=== PATIENT | female | born 1965 | race Hispanic/Latino ===

== ENCOUNTER 2020-05-26 19:00 | Inpatient (IN) | payer OTHER, SELFPAY ==
[~2020-05-26] VITALS: Ht 157.5 cm; Wt 85.3 kg
[2020-05-26] MEDS ORDERED: 0.9%NACL 1000ML 1,000 ML IV ONE ×2 (19:12→22:53)
[2020-05-26 19:27] LABS: BASOPHILS % (AUTO) 0.2 % (0.0-5.0); EOSINOPHILS % (AUTO) 0.1 % (0.0-8.0); LYMPHOCYTES % (AUTO) 13.4 % (21.0-51.0); MEAN CORPUSCULAR HEMOGLOBIN 26.8 pg (27.0-33.0); MEAN CORPUSCULAR HGB CONC 32.3 g/dL (32.0-36.0); MEAN CORPUSCULAR VOLUME 82.9 fL (79-99); MONOCYTES % (AUTO) 4.2 % (3.0-13.0); NEUTROPHILS % (AUTO) 81.8 % (40.0-77.0); PLATELET COUNT (AUTO) 228 K/uL (130-400); RED BLOOD CELL COUNT(AUTO) 5.19 MIL/uL (4.00-5.50); RED CELL DISTRIBUTION WIDTH 13.8 % (11.0-15.5); WHITE BLOOD COUNT (AUTO) 11.2 K/uL (4.8-10.8)
[2020-05-26 19:30] LABS: APPEARANCE,URINE Clear (CLEAR); BILIRUBIN,URINE Negative (NEGATIVE); COLOR,URINE Yellow (YELLOW); GLUCOSE, URINE (UA) Negative (NEGATIVE); KETONES,URINE 15 mg/dL (NEGATIVE); LEUKOCYTE ESTERASE ,URINE Trace (NEGATIVE); NITRATE,URINE Negative (NEGATIVE); OCCULT BLOOD,URINE Trace (NEGATIVE); PH,URINE 6.5 (5.0-8.0); PROTEIN,URINE POS 1+ mg/dL (NEGATIVE)
[2020-05-26 19:33] LABS: HCG,QUAL RESULT NEGATIVE (NEGATIVE)
[2020-05-26 19:36] LABS: CREATININE 0.8 mg/dL (0.5-1.5); POTASSIUM 3.7 mmol/L (3.5-5.1)
[2020-05-26 19:37] LABS: RBC,URINE 0-1 /HPF (0-1)
[2020-05-26 19:38] LABS: BACTERIA,URINE Few /HPF (None Seen); MUCUS,URINE Moderate LPF (None Seen); SQUAMOUS EPITHELIAL CELL,UR Few /HPF (0-2)
[2020-05-26 19:47] LABS: ALBUMIN 4.1 g/dL (3.5-5.0); BILIRUBIN,TOTAL 0.6 mg/dL (0.2-1.0); TOTAL PROTEIN, SERUM 8.5 g/dL (6.0-8.3)
[2020-05-26] MEDS ORDERED: ZOSYN 3.375GM+NS 50ML 50 ML IV ONE (19:58)
[2020-05-26] MEDS ORDERED: MORPHINE 4 MG SYG IV PRN (21:15)
[2020-05-26] MEDS ORDERED: ACETAMINOPHEN 325 MG TAB PO PRN ×2 (21:15)
[2020-05-26] MEDS ORDERED: ONDANSETRON 4MG INJ IV PRN (21:15)
[2020-05-26] MEDS: 0.9%NACL 1000ML 1,000 ML IV SCH (21:15)
[2020-05-26] MEDS ORDERED: MORPHINE 4 MG SYG ONE (23:45)
[2020-05-27] VITALS (19 sets, daily range): BP systolic 122–159; BP diastolic 47–88
[2020-05-27] MEDS: ZOSYN 3.375GM+NS 50ML 50 ML IV SCH ×4 (04:42→21:00)
[2020-05-27] MEDS: MORPHINE 2 MG SYG IV PRN ×2 (04:52→22:33)
[2020-05-27] MEDS: 0.9%NACL 1000ML 1,000 ML IV SCH ×2 (06:18→16:30)
[2020-05-27] MEDS ORDERED: DOCUSATE SODIUM 100 MG CAP PO SCH (08:30)
[2020-05-27] MEDS ORDERED: LACTULOSE 20 GM/30 ML UDCUP PO SCH (08:30)
[2020-05-27 08:55] LABS: HEMOGLOBIN A1C 5.9 % (4.0-6.0)
[2020-05-27] MEDS: DOCUSATE SODIUM 100 MG CAP PO SCH ×2 (10:12→22:35)
[2020-05-27] MEDS: SENNOSIDES 8.6 MG TABLET PO SCH (10:12)
[2020-05-27] MEDS: FAMOTIDINE 20MG VIAL IV SCH ×2 (10:12→22:32)
[2020-05-27] MEDS ORDERED: BUPIVACAINE/PF 0.25% 30ML VIAL IJ ONE (16:40)
[2020-05-27] MEDS ORDERED: LIDOCAINE 1%-EPI 1:100,000 20 ML VIAL IJ ONE (16:40)
[2020-05-27] MEDS ORDERED: PROPOFOL 10 MG/ML 20ML VIAL IV ONE (19:05)
[2020-05-27] MEDS ORDERED: FENTANYL CITRATE PF 50 MCG/1 ML 2ML VIAL ONE ×2 (19:05→20:37)
[2020-05-27] MEDS ORDERED: LIDOCAINE PF 100MG/5ML (2%) SYRINGE 5ML ONE (19:05)
[2020-05-27] MEDS ORDERED: SUCCINYLCHOLINE 200MG/10ML SYR ONE (19:05)
[2020-05-27] MEDS ORDERED: MIDAZOLAM HCL 1 MG/ML 2ML VIAL ONE (19:05)
[2020-05-27] MEDS ORDERED: ONDANSETRON 4MG INJ ONE (19:08)
[2020-05-27] MEDS ORDERED: DEXAMETHASONE SOD PHOSPHATE 4 MG/ML 1ML VIAL ONE (19:08)
[2020-05-27] MEDS ORDERED: GLYCOPYRROLATE 1 MG/5 ML SYRINGE ONE (19:08)
[2020-05-27] MEDS ORDERED: NEOSTIGMINE 5MG/5ML SYR IV ONE (19:08)
[2020-05-27] MEDS ORDERED: ROCURONIUM 10MG/1ML SYR 10 MG/ML ML ONE (19:25)
[2020-05-27] MEDS ORDERED: PHENYLEPHRINE HCL 10 MG/ML 1ML VIAL IV ONE (19:54)
[2020-05-28] VITALS (8 sets, daily range): BP systolic 112–159; BP diastolic 60–83
[2020-05-28] MEDS: OXYCODONE/ACETAMIN 5/325MG TAB PO PRN ×2 (02:21→11:47)
[2020-05-28] MEDS: 0.9%NACL 1000ML 1,000 ML IV SCH ×3 (03:30→22:00)
[2020-05-28] MEDS: ZOSYN 3.375GM+NS 50ML 50 ML IV SCH ×3 (04:33→22:00)
[2020-05-28 05:13] LABS: BASOPHILS % (AUTO) 0.2 % (0.0-5.0); EOSINOPHILS % (AUTO) 1.6 % (0.0-8.0); HEMATOCRIT 38.8 % (36-48); LYMPHOCYTES % (AUTO) 9.2 % (21.0-51.0); MEAN CORPUSCULAR HEMOGLOBIN 26.2 pg (27.0-33.0); MEAN CORPUSCULAR HGB CONC 31.2 g/dL (32.0-36.0); MONOCYTES % (AUTO) 5.1 % (3.0-13.0); NEUTROPHILS % (AUTO) 83.6 % (40.0-77.0); PLATELET COUNT (AUTO) 209 K/uL (130-400); RED BLOOD CELL COUNT(AUTO) 4.62 MIL/uL (4.00-5.50); RED CELL DISTRIBUTION WIDTH 14.2 % (11.0-15.5); WHITE BLOOD COUNT (AUTO) 9.5 K/uL (4.8-10.8)
[2020-05-28 05:40] LABS: BILIRUBIN,TOTAL 0.6 mg/dL (0.2-1.0); CREATININE 0.6 mg/dL (0.5-1.5); POTASSIUM 4.1 mmol/L (3.5-5.1); TOTAL PROTEIN, SERUM 7.3 g/dL (6.0-8.3)
[2020-05-28] MEDS: DOCUSATE SODIUM 100 MG CAP PO SCH ×2 (08:20→22:00)
[2020-05-28] MEDS: FAMOTIDINE 20MG VIAL IV SCH ×2 (08:20→22:53)
[2020-05-28] MEDS: SENNOSIDES 8.6 MG TABLET PO SCH (08:20)
[2020-05-29] VITALS (7 sets, daily range): BP systolic 107–144; BP diastolic 58–82
[2020-05-29] MEDS: ZOSYN 3.375GM+NS 50ML 50 ML IV SCH ×3 (05:15→22:03)
[2020-05-29 06:24] LABS: BASOPHILS % (AUTO) 0.7 % (0.0-5.0); EOSINOPHILS % (AUTO) 1.2 % (0.0-8.0); LYMPHOCYTES % (AUTO) 35.9 % (21.0-51.0); MEAN CORPUSCULAR HGB CONC 32.2 g/dL (32.0-36.0); MEAN CORPUSCULAR VOLUME 83.8 fL (79-99); MONOCYTES % (AUTO) 4.7 % (3.0-13.0); NEUTROPHILS % (AUTO) 57.3 % (40.0-77.0); PLATELET COUNT (AUTO) 155 K/uL (130-400); RED BLOOD CELL COUNT(AUTO) 3.82 MIL/uL (4.00-5.50); RED CELL DISTRIBUTION WIDTH 14.2 % (11.0-15.5); WHITE BLOOD COUNT (AUTO) 5.9 K/uL (4.8-10.8)
[2020-05-29 06:46] LABS: ALBUMIN 2.4 g/dL (3.5-5.0); BILIRUBIN,TOTAL 0.4 mg/dL (0.2-1.0); CREATININE 0.8 mg/dL (0.5-1.5); POTASSIUM 3.3 mmol/L (3.5-5.1); TOTAL PROTEIN, SERUM 5.8 g/dL (6.0-8.3)
[2020-05-29] MEDS: SENNOSIDES 8.6 MG TABLET PO SCH (09:16)
[2020-05-29] MEDS: DOCUSATE SODIUM 100 MG CAP PO SCH ×2 (09:16→22:03)
[2020-05-29] MEDS: FAMOTIDINE 20MG VIAL IV SCH ×2 (09:19→22:03)
[2020-05-29] MEDS: 0.9%NACL 1000ML 1,000 ML IV SCH (12:20)
[2020-05-30 03:45] VITALS: BP 134/68
[2020-05-30] MEDS: ZOSYN 3.375GM+NS 50ML 50 ML IV SCH ×3 (05:22→21:59)
[2020-05-30 05:51] LABS: BASOPHILS % (AUTO) 0.4 % (0.0-5.0); EOSINOPHILS % (AUTO) 3.3 % (0.0-8.0); HEMATOCRIT 33.5 % (36-48); LYMPHOCYTES % (AUTO) 37.5 % (21.0-51.0); MEAN CORPUSCULAR HEMOGLOBIN 25.9 pg (27.0-33.0); MEAN CORPUSCULAR VOLUME 83.3 fL (79-99); MONOCYTES % (AUTO) 4.2 % (3.0-13.0); NEUTROPHILS % (AUTO) 54.4 % (40.0-77.0); PLATELET COUNT (AUTO) 192 K/uL (130-400); RED BLOOD CELL COUNT(AUTO) 4.02 MIL/uL (4.00-5.50); RED CELL DISTRIBUTION WIDTH 13.7 % (11.0-15.5); WHITE BLOOD COUNT (AUTO) 5.5 K/uL (4.8-10.8)
[2020-05-30 06:19] LABS: ALBUMIN 2.6 g/dL (3.5-5.0); BILIRUBIN,TOTAL 0.4 mg/dL (0.2-1.0); CREATININE 0.7 mg/dL (0.5-1.5); POTASSIUM 3.2 mmol/L (3.5-5.1); TOTAL PROTEIN, SERUM 6.4 g/dL (6.0-8.3)
[2020-05-30] MEDS: SENNOSIDES 8.6 MG TABLET PO SCH (08:50)
[2020-05-30] MEDS: FAMOTIDINE 20MG VIAL IV SCH ×2 (08:51→21:59)
[2020-05-30] MEDS: DOCUSATE SODIUM 100 MG CAP PO SCH ×2 (08:51→21:59)
[2020-05-30 08:58] VITALS: BP 122/73
[2020-05-30] MEDS ORDERED: POTASSIUM CHLORIDE 10MEQ/100ML 100 ML IV PRN (13:45)
[2020-05-30] MEDS ORDERED: KCL 20 MEQ ERTAB PO PRN (13:45)
[2020-05-30] MEDS ORDERED: LIDOCAINE HCL-MPF 1% 2ML VIAL IV PRN (13:45)
[2020-05-30 13:59] VITALS: BP 130/73
[2020-05-30 16:44] VITALS: BP 129/82
[2020-05-30 20:06] VITALS: BP 131/73
[2020-05-30] MEDS: POTASSIUM CHLORIDE 10% ELIXIR 20 MEQ/15 ML UDCUP PO PRN (22:00)
[2020-05-31 00:05] VITALS: BP 134/69
[2020-05-31 03:58] VITALS: BP 118/76
[2020-05-31] MEDS: ZOSYN 3.375GM+NS 50ML 50 ML IV SCH ×2 (05:20→13:00)
[2020-05-31] MEDS: POTASSIUM CHLORIDE 10% ELIXIR 20 MEQ/15 ML UDCUP PO PRN (05:21)
[2020-05-31 07:00] VITALS: BP 121/64
[2020-05-31] MEDS: DOCUSATE SODIUM 100 MG CAP PO SCH (09:00)
[2020-05-31] MEDS: SENNOSIDES 8.6 MG TABLET PO SCH (09:00)
[2020-05-31] MEDS: FAMOTIDINE 20MG VIAL IV SCH (09:00)
[2020-05-31 11:30] VITALS: BP 122/66
== END 2020-05-31 15:35 | disposition home or self-care (01) | DRG 419 ==
LOC: EDH 19:00 → EDHIP 19:01 → 3CH 05-27 01:06
PROVIDERS: ADMIT Internal Medicine; ATTEND Internal Medicine
PROC: 0FT44ZZ Resection of Gallbladder, Percutaneous Endoscopic Approach (ICD-10-PCS; principal; 2020-05-27 19:19)
DX: K80.00 Calculus of gallbladder with acute cholecystitis without obstruction (principal); K57.30 Diverticulosis of large intestine without perforation or abscess without bleeding; K82.8 Other specified diseases of gallbladder; K82.A1 Gangrene of gallbladder in cholecystitis; K59.00 Constipation, unspecified; K66.0 Peritoneal adhesions (postprocedural) (postinfection); Z20.822 Contact with and (suspected) exposure to COVID-19; E87.6 Hypokalemia; Z82.0 Family history of epilepsy and other diseases of the nervous system; Z82.5 Family history of asthma and other chronic lower respiratory diseases; Z82.49 Family history of ischemic heart disease and other diseases of the circulatory system; Z83.3 Family history of diabetes mellitus; Z98.891 History of uterine scar from previous surgery
CPT/HCPCS: 36415; 71045; 74176; 76705; 80053; 81001; 81025; 83036; 83690; 84132; 84145; 84484; 85025; 87426; 88304; 93005; 99291; G0378; J0330; J1100; J2001; J2250; J2270; J2370; J2405; J2543; J2704; J2710; J3010; J3490; J7030; U0003